=== PATIENT | female | born 1970 | race Caucasian/White ===

== ENCOUNTER → 2016-11-27 | Outpatient (CLI) | payer OTHER ==
--- NOTE | 2016-11-28 07:21 | USB ---
Reason for exam: clinical finding. History: Patient has history of endometrial cancer at age 25 and has history of other cancer at age 22. Family history of breast cancer in maternal aunt at age 55. Indicated problem(s): lump or thickening in the left breast. Physical Findings: Nurse Summary: Patient complains of left breast lump upper outer quadrant x 1 month (nurse mm). US Breast LT Left breast ultrasound including all four quadrants, the retroareolar region and axilla demonstrates a 1.1cm septated cyst at 1 o'clock, a 1.8 x 0.4 x 1.2cm oval, solid lesion with vascularity at 2 o'clock for which a biopsy is recommended, a 1.0cm oval, cystic lesion at 3 o'clock and a 0.5cm oval, solid, hypoechoic lesion at 4 o'clock. These results were verbally communicated with the patient and result sheet given to the patient on 11/27/09. ASSESSMENT: Incomplete: need additional imaging evaluation, BI-RAD 0 RECOMMENDATION: Special view mammogram of the left breast.
--- NOTE | 2016-11-28 07:28 | MM ---
Reason for exam: additional evaluation requested from abnormal screening. Last mammogram was performed 7 months ago. History: Patient has history of endometrial cancer at age 25 and has history of other cancer at age 22. Family history of breast cancer in maternal aunt at age 55. MG 3D Diag Mammo W/Cad LT CC and MLO view(s) were taken of the left breast. Prior study comparison: April 23, 2016, right breast MG 3d diag mammo w/cad RT. October 01, 2015, right breast MG 3d work up w/cad RT. September 17, 2015, bilateral MG screening mammo w CAD. The breast tissue is extremely dense which could obscure a lesion on mammography. These results were verbally communicated with the patient and result sheet given to the patient on 11/27/16. ASSESSMENT: Probably benign, BI-RAD 3 RECOMMENDATION: Surgical consultation of the left breast. Ultrasound core biopsy of both breasts. (ultrasound suspicious at 2 o'clock) Called with mammographic findings and has scheduled an appointment for the patient for 12/15/16 at 2:[address] Luna. Biopsy done 12/03/16 at 1 o'clock. PRELIMINARY REPORT CALLED AND FAXED TO DR. LUNA ON 11/28/16 AT 300/TMP.
== END | disposition home or self-care (01) ==
LOC: RADUSWWP 15:26
PROVIDERS: ATTEND Family Medicine
DX: N63 Unspecified lump in breast (principal); R92.8 Other abnormal and inconclusive findings on diagnostic imaging of breast
CPT/HCPCS: 76641; G0206; G0279

== ENCOUNTER → 2016-12-03 | Day surgery (SDC) | payer OTHER ==
[~2016-12-03] MED LIST: BACITRACIN OINT 1 EACH PACKET TOPICAL ONE; LIDOCAINE 1% INJ 10MG/ML (20 ML MDV) ONE; LIDOCAINE 1%-EPI 1:100,000 20 ML VIAL ONE; SODIUM BICARB 4% 5 ML VIAL (0.48 MEQ/ML) ONE
--- NOTE | 2016-12-03 14:12 | USB ---
EXAMINATION TYPE: US biopsy breast VAD LT, MG diagnostic mammo LT wo CAD DATE OF EXAM: 12/03/2016 1:38 PM CLINICAL HISTORY: R92.8 Abnormal mammo. Abnormal ultrasound. Palpable abnormality. TECHNIQUE: Ultrasound guided core biopsy of left breast with clip placement and follow-up two-view mammogram. COMPARISON: Left breast mammogram and ultrasound November 27, 2016 and older mammograms. FINDINGS: The procedure of ultrasound guided core biopsy was explained to the patient. Benefits, alternatives, and risks were discussed. An informed consent was then obtained. The patient was placed in supine positioning for imaging and for the procedure. Preprocedure imaging shows oval heterogeneous hypoechoic lesion at 2: 00 position measuring 7 mm on long axis zone B/C which believes correlates with the prior study as no additional suspicious lesions are seen near this level. Lesion is smaller versus prior exam. The overlying skin was prepped and draped in usual sterile fashion. Lidocaine buffered with bicarbonate was used as anesthetic into the skin and subcutaneous tissue. Lidocaine with epinephrine is used into the deeper tissue up to area of concern in the left breast. A luly was made with surgical scalpel. Under ultrasound guidance, a 13-gauge vacuum assisted biopsy gun device was used to obtain 4 core samples. Following this, a biopsy clip was left in lesion. The patient tolerated the procedure well without any immediate complication. The patient was kept in the radiology department for short stay after the procedure and then discharged home in stable condition. Postprocedure mammogram shows successful deployment of clip the posterior outer slightly upper aspect. No mammographic correlate noted. IMPRESSION: Successful, uncomplicated ultrasound guided core biopsy of area of concern in the left breast, full pathology results to follow. Low index of suspicion noted at time of procedure. Pathology Results: Benign BREAST, LEFT, CORE BIOPSY: FIBROCYSTIC CHANGES INCLUDING FIBROSIS, CYSTS, APOCRINE METAPLASIA, FOCAL FIBROADENOMATOID HYPERPLASIA AND COLUMNAR CELL HYPERPLASIA. Recommendation Follow up ultrasound of the left breast in 6 months. AMAURYD
== END ==
LOC: RADUSWWP 12:18
PROVIDERS: ATTEND Family Medicine
DX: R92.8 Other abnormal and inconclusive findings on diagnostic imaging of breast (principal); N60.32 Fibrosclerosis of left breast; N60.82 Other benign mammary dysplasias of left breast; N62 Hypertrophy of breast; N64.89 Other specified disorders of breast
CPT/HCPCS: 88305; 19083; G0206; A4648; J2001

== ENCOUNTER → 2017-07-24 | Outpatient (CLI) | payer OTHER ==
--- NOTE | 2017-07-27 09:21 | USB ---
Reason for exam: clinical finding. History: Patient has history of endometrial cancer at age 25 and has history of other cancer at age 22. Family history of breast cancer in maternal aunt at age 55 and breast cancer in aunt at age 50. Benign US biopsy breast VAD LT of the left breast, December 03, 2016. Indicated problem(s): palpable abnormality in the left breast. Physical Findings: Nurse Summary: 0.5cm nodule movable (nurse dw). US Breast LT Left breast ultrasound includes all four quadrants, the retroareolar region and axilla. Finding demonstrates a 0.5 x 0.5 x 0.4cm cystic lesion at 1 o'clock, smaller from prior, a 1.0 x 1.0 x 0.4cm solid, hypoechoic lesion at 2 o'clock, previously biopsied, a 0.6 x 0.6 x 0.3cm mixed lesion at 3 o'clock and a 0.5 x 0.5 x 0.4cm mixed lesion at 3 o'clock. Overall fibrocystic change. These results were verbally communicated with the patient and result sheet given to the patient on 07/24/17. ASSESSMENT: Benign, BI-RAD 2 RECOMMENDATION: Routine screening mammogram of both breasts. (due now)
== END | disposition home or self-care (01) ==
LOC: RADUSWWP 15:44
PROVIDERS: ATTEND Family Medicine
DX: R92.8 Other abnormal and inconclusive findings on diagnostic imaging of breast (principal)

== ENCOUNTER → 2018-01-07 | Outpatient (CLI) | payer OTHER ==
--- NOTE | 2018-01-08 08:18 | MM ---
Reason for exam: additional evaluation requested from prior study. Last mammogram was performed 1 year and 1 month ago. History: Patient has history of endometrial cancer at age 25 and has history of other cancer at age 22. Family history of breast cancer in maternal aunt at age 55 and breast cancer in aunt at age 50. Benign US biopsy breast VAD LT of the left breast, December 03, 2016. Physical Findings: Nurse did not find any significant physical abnormalities on exam. MG 3D Diag Mammo W/Cad NITIN Bilateral CC and MLO view(s) were taken. Prior study comparison: December 03, 2016, left breast MG diagnostic mammo LT wo CAD. November 27, 2016, left breast MG 3d diag mammo w/cad LT. The breast tissue is extremely dense which could obscure a lesion on mammography. There are stable right sided calcifications. No suspicious abnormality. These results were verbally communicated with the patient and result sheet given to the patient on 01/07/18. ASSESSMENT: Benign, BI-RAD 2 RECOMMENDATION: Routine screening mammogram of both breasts in 1 year.
== END | disposition home or self-care (01) ==
LOC: RADMAMWWP 15:30
PROVIDERS: ATTEND Family Medicine
DX: Z12.31 Encounter for screening mammogram for malignant neoplasm of breast (principal)
CPT/HCPCS: 77066; G0279

== ENCOUNTER → 2019-02-15 | Outpatient (CLI) | payer OTHER ==
--- NOTE | 2019-02-16 09:35 | MM ---
Reason for exam: additional evaluation requested from prior study. Last mammogram was performed 1 year and 1 month ago. History: Patient has history of endometrial cancer at age 25 and has history of other cancer at age 22. Family history of breast cancer in maternal aunt at age 55 and breast cancer in aunt at age 50. Benign US biopsy breast VAD LT of the left breast, December 03, 2016. Physical Findings: Nurse Summary: 0.5 x 0.5cm nodule in the left breast at 2 o'clock (nurse ts). MG Diagnostic Mammo w CAD NITIN Bilateral CC and MLO view(s) were taken. XCCL view(s) were taken of the left breast. Prior study comparison: January 07, 2018, bilateral MG 3d diag mammo w/cad NITIN. December 03, 2016, left breast MG diagnostic mammo LT wo CAD. The breast tissue is extremely dense which could obscure a lesion on mammography. Benign calcifications in the right breast. Left lateral asymmetry deep to the palpable improves on XCCL. Ultrasound will be performed. These results were verbally communicated with the patient and result sheet given to the patient on 02/15/19. ASSESSMENT: Incomplete: need additional imaging evaluation, BI-RAD 0 RECOMMENDATION: Ultrasound of the left breast. (palpable)
--- NOTE | 2019-02-16 09:38 | USB ---
Reason for exam: additional evaluation requested from abnormal screening. History: Patient has history of endometrial cancer at age 25 and has history of other cancer at age 22. Family history of breast cancer in maternal aunt at age 55 and breast cancer in aunt at age 50. Benign US biopsy breast VAD LT of the left breast, December 03, 2016. US Breast Limited LT Left limited breast ultrasound including focal area of concern, retroareolar and axilla demonstrates a 0.7 x 0.5 x 0.7cm oval, cystic, benign lesion at 2 o'clock, a 0.6 x 0.4 x 0.6cm oval, cystic, benign lesion at 2 o'clock, a 1.1 x 0.5 x 1.1cm oval, solid lesion at 2 o'clock prior biopsy of a solid mass in 2016, benign and a 1.2 x 0.7 x 1.1cm oval, cystic, benign lesion at 12 o'clock. These results were verbally communicated with the patient and result sheet given to the patient on 02/15/19. ASSESSMENT: Benign, BI-RAD 2 RECOMMENDATION: Routine screening mammogram of both breasts in 1 year.
== END | disposition home or self-care (01) ==
LOC: RADMAMWWP 15:21
PROVIDERS: ATTEND Family Medicine
DX: R92.8 Other abnormal and inconclusive findings on diagnostic imaging of breast (principal); R92.0 Mammographic microcalcification found on diagnostic imaging of breast
CPT/HCPCS: 77066

== ENCOUNTER → 2020-05-02 | Outpatient (CLI) | payer OTHER ==
--- NOTE | 2020-05-08 12:10 | MM ---
Reason for exam: screening (asymptomatic). Last mammogram was performed 1 year and 2 months ago. History: Patient has history of endometrial cancer at age 25 and has history of other cancer at age 22. Family history of breast cancer in maternal aunt at age 55 and breast cancer in aunt at age 50. Benign US biopsy breast VAD LT of the left breast, December 03, 2016. Physical Findings: A clinical breast exam by your physician is recommended on an annual basis and results should be correlated with mammographic findings. MG Screening Mammo w CAD Bilateral CC and MLO view(s) were taken. Prior study comparison: February 15, 2019, bilateral MG diagnostic mammo w CAD NITIN. January 07, 2018, bilateral MG 3d diag mammo w/cad NITIN. December 03, 2016, left breast MG diagnostic mammo LT wo CAD. April 23, 2016, right breast MG 3d diag mammo w/cad RT. September 17, 2015, bilateral MG screening mammo w CAD. The breast tissue is heterogeneously dense. This may lower the sensitivity of mammography. Inferior left MLO nodular asymmetry more defined. ASSESSMENT: Incomplete: need additional imaging evaluation, BI-RAD 0 RECOMMENDATION: Special view mammogram of the left breast. (3D) If lesion persists on supplemental views, image directed ultrasound is recommended. [facility] will attempt to contact patient to return for supplemental views and ultrasound if indicated.
== END | disposition home or self-care (01) ==
LOC: RADMAMWWP 12:24
PROVIDERS: ATTEND Family Medicine
DX: Z12.31 Encounter for screening mammogram for malignant neoplasm of breast (principal)
CPT/HCPCS: 77067

== ENCOUNTER → 2020-05-10 | Outpatient (CLI) | payer OTHER ==
--- NOTE | 2020-05-10 10:20 | MM ---
Reason for exam: additional evaluation requested from abnormal screening. Last mammogram was performed less than 1 month ago. History: Patient has history of endometrial cancer at age 25 and has history of other cancer at age 22. Family history of breast cancer in maternal aunt at age 55 and breast cancer in aunt at age 50. Benign US biopsy breast VAD LT of the left breast, December 03, 2016. Physical Findings: Nurse Summary: 1 x 1cm nodule in the left breast at 2 o'clock (nurse ts). MG Work Up Mamm w CAD LT Spot compression CC, spot compression MLO, and LM view(s) were taken of the left breast. Prior study comparison: May 02, 2020, bilateral MG screening mammo w CAD. February 15, 2019, bilateral MG diagnostic mammo w CAD NITIN. The breast tissue is extremely dense which could obscure a lesion on mammography. Finding #1: There is a 7 mm equal density (isodense), obscured mass in the lower outer quadrant of the left breast. Finding #2: There are typically benign calcifications in the left breast. These results were verbally communicated with the patient and result sheet given to the patient on 05/10/20. ASSESSMENT: Incomplete: need additional imaging evaluation, BI-RAD 0 RECOMMENDATION: Ultrasound of the left breast.
--- NOTE | 2020-05-10 10:23 | USB ---
Reason for exam: additional evaluation requested from abnormal screening. History: Patient has history of endometrial cancer at age 25 and has history of other cancer at age 22. Family history of breast cancer in maternal aunt at age 55 and breast cancer in aunt at age 50. Benign US biopsy breast VAD LT of the left breast, December 03, 2016. US Breast Workup Limited LT Left limited breast ultrasound including focal area of concern, retroareolar and axilla demonstrates a 1.1 x 1.0 x 0.7cm cystic lesion at 12 o'clock, a 1.2 x 1.0 x 0.8cm cystic lesion at 2 o'clock and a 0.6 x 0.7 x 0.3cm mixed lesion at 4 o'clock. Multiple cysts, measured palpable and mammographic correlation. These results were verbally communicated with the patient and result sheet given to the patient on 05/10/20. ASSESSMENT: Suspicious, BI-RAD 4 RECOMMENDATION: Ultrasound core biopsy of the left breast. Called Dr. Cano's office with mammographic findings and has scheduled an appointment for the patient for 05/17/20 at 2:[address] Cabral. PRELIMINARY REPORT CALLED AND FAXED TO DR. CABRAL ON 05/10/20.
== END | disposition home or self-care (01) ==
LOC: RADMAMWWP 06:56
PROVIDERS: ATTEND Family Medicine
DX: R92.8 Other abnormal and inconclusive findings on diagnostic imaging of breast (principal)
CPT/HCPCS: 77065

== ENCOUNTER → 2020-06-06 | Day surgery (SDC) | payer OTHER ==
[2020-06-06 09:50] VITALS: RESP 16; TEMP 98
[2020-06-06 11:25] VITALS: BP 120/74; PULSE 80
--- NOTE | 2020-06-06 11:40 | USB ---
EXAMINATION TYPE: US breast aspiration single LT, MG diagnostic mammo LT wo CAD DATE OF EXAM: 06/06/2020 COMPARISON: NONE CLINICAL HISTORY: R92.8 ABN MAMM. Informed consent was obtained and all the patient's questions were answered. The left 4:00 lesion was localized sonographically. Standard sterile technique was utilized as well as appropriate local anes thesia with 1% lidocaine. An 18-gauge needle was introduced into the lesion and aspirated. Scant amou nt of aspirate was obtained and sent for cytology. Clip marker was placed at the site of aspiration. Postprocedural mammogram demonstrates appropriate placement of clip marker. The patient tolerated the procedure well and left the department in stable condition. IMPRESSION: Successful ultrasound-guided cyst aspiration left 4:00 with cytology pending.
== END ==
LOC: RADUSWWP 09:29
PROVIDERS: ATTEND Surgery
DX: N60.02 Solitary cyst of left breast (principal)
CPT/HCPCS: 88108; 88305; 77065; 76942; 19000; A4648; J2001

== ENCOUNTER → 2020-12-11 | Outpatient (CLI) | payer OTHER ==
--- NOTE | 2020-12-11 11:14 | MM ---
Reason for exam: follow-up at short interval from prior study. Last mammogram was performed 6 months ago. History: Patient has history of endometrial cancer at age 25 and has history of other cancer at age 22. Family history of breast cancer in maternal aunt at age 55 and breast cancer in aunt at age 50. Benign US breast aspiration single LT of the left breast, June 06, 2020. Benign US biopsy breast VAD LT of the left breast, December 03, 2016. Physical Findings: Nurse did not find any significant physical abnormalities on exam. MG Diagnostic Mammo LT w CAD CC and MLO view(s) were taken of the left breast. Prior study comparison: June 06, 2020, left breast MG diagnostic mammo LT wo CAD. May 10, 2020, left breast MG work up mamm w CAD LT. The breast tissue is extremely dense which could obscure a lesion on mammography. Finding #1: There is a 13 mm circumscribed oval mass in the axilla position of the left breast. Finding #2: There are typically benign round calcifications in the left breast. Previous mammotome biopsy in the left breast. These results were verbally communicated with the patient and result sheet given to the patient on 12/11/20. ASSESSMENT: Incomplete: need additional imaging evaluation, BI-RAD 0 RECOMMENDATION: Ultrasound of the left breast. (axilla)
--- NOTE | 2020-12-11 11:18 | USB ---
Reason for exam: additional evaluation requested from abnormal screening. History: Patient has history of endometrial cancer at age 25 and has history of other cancer at age 22. Family history of breast cancer in maternal aunt at age 55 and breast cancer in aunt at age 50. Benign US breast aspiration single LT of the left breast, June 06, 2020. Benign US biopsy breast VAD LT of the left breast, December 03, 2016. US Breast Limited LT Technologist: Maria R Thakkar Left limited breast ultrasound including focal area of concern, retroareolar and axilla demonstrates a 0.8 x 0.8 x 0.6cm circular, cystic lesion 12 o'clock with echoes, suspect debris filled cyst, a 0.6 x 0.6 x 0.4cm round lesion at 1 o'clock, a 0.9 x 0.9 x 0.8cm circular, simple cystic lesion at 1 o'clock, a 1.1 x 1.1 x 0.5cm oval, cystic lesion at 1 o'clock with echoes, suspect debris filled cyst, a 1.3 x 0.7 x 0.5cm cystic cluster at 2 o'clock and a 1.3 x 1.1 x 0.9cm circular, simple cystic lesion at 3 o'clock. Multiple cystic lesions seen, largest measured. These results were verbally communicated with the patient and result sheet given to the patient on 12/11/20. ASSESSMENT: Benign, BI-RAD 2 RECOMMENDATION: Follow-up diagnostic mammogram of both breasts in 5 months. Back on schedule for April 2021.
== END | disposition home or self-care (01) ==
LOC: RADMAMWWP 08:48
PROVIDERS: ATTEND Surgery
DX: R92.8 Other abnormal and inconclusive findings on diagnostic imaging of breast (principal)
CPT/HCPCS: 77065

== ENCOUNTER → 2021-05-13 | Outpatient (CLI) | payer OTHER ==
--- NOTE | 2021-05-17 12:51 | MM ---
Reason for exam: additional evaluation requested from prior study. Last mammogram was performed 5 months ago. History: Patient has history of endometrial cancer at age 25 and has history of other cancer at age 22. Family history of breast cancer in maternal aunt at age 55 and breast cancer in aunt at age 50. Benign US breast aspiration single LT of the left breast, June 06, 2020. Benign US biopsy breast VAD LT of the left breast, December 03, 2016. Physical Findings: Nurse Summary: 0.5cm nodule in the left breast at 1 o'clock and 3 o'clock (nurse dw). MG Diagnostic Mammo w CAD NITIN Bilateral CC and MLO view(s) were taken. Prior study comparison: December 11, 2020, left breast MG diagnostic mammo LT w CAD. June 06, 2020, left breast MG diagnostic mammo LT wo CAD. The breast tissue is extremely dense which could obscure a lesion on mammography. Extensive nodularity left breast especially upper outer quadrant with 3 palpable markers placed by the nurse. Stable grouped calcifications right breast. These results were verbally communicated with the patient and result sheet given to the patient on 05/13/21. ASSESSMENT: Incomplete: need additional imaging evaluation, BI-RAD 0 RECOMMENDATION: Ultrasound of the left breast.
--- NOTE | 2021-05-17 12:53 | USB ---
Reason for exam: additional evaluation requested from abnormal screening. History: Patient has history of endometrial cancer at age 25 and has history of other cancer at age 22. Family history of breast cancer in maternal aunt at age 55 and breast cancer in aunt at age 50. Benign US breast aspiration single LT of the left breast, June 06, 2020. Benign US biopsy breast VAD LT of the left breast, December 03, 2016. US Breast LT Left complete breast ultrasound includes all four quadrants, the retroareolar region and axilla. Finding demonstrates a 15 x 9 x 12mm oval, cystic lesion at 1 o'clock BB, a 5 x 2 x 5mm oval, probable debris filled cyst at 2 o'clock, a 14 x 6 x 12mm cystic lesion at 2 o'clock BB and a 6 x 6 x 9mm cystic lesion at 4 o'clock BB. Innumerable cysts visualized. These results were verbally communicated with the patient and result sheet given to the patient on 05/13/21. ASSESSMENT: Probably benign, BI-RAD 3 RECOMMENDATION: Follow-up diagnostic mammogram of both breasts in 1 year.
== END | disposition home or self-care (01) ==
LOC: RADMAMWWP 14:30
PROVIDERS: ATTEND Family Medicine
DX: N63.25 Unspecified lump in the left breast, overlapping quadrants (principal); R92.1 Mammographic calcification found on diagnostic imaging of breast; N60.02 Solitary cyst of left breast; Z80.3 Family history of malignant neoplasm of breast; Z85.42 Personal history of malignant neoplasm of other parts of uterus
CPT/HCPCS: 77066

== ENCOUNTER → 2022-08-06 | Outpatient (CLI) | payer OTHER ==
--- NOTE | 2022-08-06 13:26 | MM ---
Reason for Exam: Additional evaluation requested from prior study. Last mammogram was performed 1 year(s) and 3 month(s) ago. Patient History: Menarche at age 14. First Full-Term at age 18. Premenopausal. Endometrial cancer, age 25. 06/06/2020, Benign Cyst Aspiration on the left side. 12/03/2016, Benign Core Biopsy on the left side. Maternal aunt had breast cancer, age 55. Maternal aunt had breast cancer, age 50. Risk Values: Aracelis 5 year model risk: 0.8%. NCI Lifetime model risk: 7.8%. Prior Study Comparison: 01/07/2018 Bilateral Diagnostic Mammogram, [facility]. 02/15/2019 Bilateral Diagnostic Mammogram, [facility]. 05/02/2020 Bilateral Screening Mammogram, [facility]. 05/10/2020 Left Diagnostic Mammogram, [facility]. 06/06/2020 Left Diagnostic Mammogram, [facility]. 12/11/2020 Left Diagnostic Mammogram, [facility]. 05/13/2021 Bilateral Diagnostic Mammogram, [facility]. Tissue Density: The breast tissue is extremely dense which could obscure a lesion on mammography. Findings: Analyzed By CAD. Extensive nodularity in the left breast especially in the upper outer quadrant with marginal increase to stable size 1.5 cm mass. Stable grouped calcifications within the right breast. Biopsy clip in the left breast. Overall Assessment: Incomplete: need additional imaging evaluation, BI-RAD 0 Management: Diagnostic Breast Ultrasound of the left breast. A clinical breast exam by your physician is recommended on an annual basis and results should be correlated with mammographic findings. This exam should not preclude additional follow-up of suspicious palpable abnormalities. Results were given to the patient verbally at the time of exam. Electronically signed and approved by: Florin Renee D.O.
--- NOTE | 2022-08-06 13:26 | MM ---
Reason for Exam: Additional evaluation requested from prior study. Last mammogram was performed 1 year(s) and 3 month(s) ago. Patient History: Menarche at age 14. First Full-Term at age 18. Premenopausal. Endometrial cancer, age 25. 06/06/2020, Benign Cyst Aspiration on the left side. 12/03/2016, Benign Core Biopsy on the left side. Maternal aunt had breast cancer, age 55. Maternal aunt had breast cancer, age 50. Risk Values: Aracelis 5 year model risk: 0.8%. NCI Lifetime model risk: 7.8%. Prior Study Comparison: 01/07/2018 Bilateral Diagnostic Mammogram, [facility]. 02/15/2019 Bilateral Diagnostic Mammogram, [facility]. 05/02/2020 Bilateral Screening Mammogram, [facility]. 05/10/2020 Left Diagnostic Mammogram, [facility]. 06/06/2020 Left Diagnostic Mammogram, [facility]. 12/11/2020 Left Diagnostic Mammogram, [facility]. 05/13/2021 Bilateral Diagnostic Mammogram, [facility]. Tissue Density: The breast tissue is extremely dense which could obscure a lesion on mammography. Findings: Analyzed By CAD. Extensive nodularity in the left breast especially in the upper outer quadrant with marginal increase to stable size 1.5 cm mass. Stable grouped calcifications within the right breast. Biopsy clip in the left breast. Overall Assessment: Incomplete: need additional imaging evaluation, BI-RAD 0 Management: Diagnostic Breast Ultrasound of the left breast. A clinical breast exam by your physician is recommended on an annual basis and results should be correlated with mammographic findings. This exam should not preclude additional follow-up of suspicious palpable abnormalities. Results were given to the patient verbally at the time of exam. Electronically signed and approved by: Florin Renee D.O.
--- NOTE | 2022-08-06 14:00 | USB ---
Reason for Exam: Follow-up at short interval from prior study. Patient History: Menarche at age 14. First Full-Term at age 18. Premenopausal. Endometrial cancer, age 25. 06/06/2020, Benign Cyst Aspiration on the left side. 12/03/2016, Benign Core Biopsy on the left side. Maternal aunt had breast cancer, age 55. Maternal aunt had breast cancer, age 50. Risk Values: Aracelis 5 year model risk: 0.8%. NCI Lifetime model risk: 7.8%. Prior Study Comparison: 06/06/2020 Left Diagnostic Mammogram, [facility]. 12/11/2020 Left Diagnostic Mammogram, [facility]. 05/13/2021 Bilateral Diagnostic Mammogram, [facility]. Findings: The upper outer quadrant of the left breast, the axilla of the left breast and the retroareolar of the left breast were scanned. Targeted left breast ultrasound from 12-3:00 with additional evaluation of the nipple and axilla was obtained. Mild increase in size of anechoic oval cystic lesion at 1:00 2 cm from the nipple measuring 1.4 x 1.2 x 1.4 cm, previously 1.5 x 0.9 x 1.2 cm. This demonstrates posterior acoustic enhancement. Stable thin septated oval anechoic cystic lesion at 1:00 4 centers from the nipple measuring 1.7 x 0.9 x 1.6 cm. Probable debris-filled cyst at 2:00 4 cm from the nipple measuring 0.4 x 0.9 x 0.9 cm, stable. Overall Assessment: Benign, BI-RAD 2 Management: Diagnostic Mammogram of both breasts in 6 months. A clinical breast exam by your physician is recommended on an annual basis and results should be correlated with mammographic findings. This exam should not preclude additional follow-up of suspicious palpable abnormalities. ??Results were given to the patient verbally at the time of exam. Electronically signed and approved by: Florin Renee D.O.
--- NOTE | 2022-08-06 14:00 | USB ---
Reason for Exam: Follow-up at short interval from prior study. Patient History: Menarche at age 14. First Full-Term at age 18. Premenopausal. Endometrial cancer, age 25. 06/06/2020, Benign Cyst Aspiration on the left side. 12/03/2016, Benign Core Biopsy on the left side. Maternal aunt had breast cancer, age 55. Maternal aunt had breast cancer, age 50. Risk Values: Aracelis 5 year model risk: 0.8%. NCI Lifetime model risk: 7.8%. Prior Study Comparison: 06/06/2020 Left Diagnostic Mammogram, [facility]. 12/11/2020 Left Diagnostic Mammogram, [facility]. 05/13/2021 Bilateral Diagnostic Mammogram, [facility]. Findings: The upper outer quadrant of the left breast, the axilla of the left breast and the retroareolar of the left breast were scanned. Targeted left breast ultrasound from 12-3:00 with additional evaluation of the nipple and axilla was obtained. Mild increase in size of anechoic oval cystic lesion at 1:00 2 cm from the nipple measuring 1.4 x 1.2 x 1.4 cm, previously 1.5 x 0.9 x 1.2 cm. This demonstrates posterior acoustic enhancement. Stable thin septated oval anechoic cystic lesion at 1:00 4 centers from the nipple measuring 1.7 x 0.9 x 1.6 cm. Probable debris-filled cyst at 2:00 4 cm from the nipple measuring 0.4 x 0.9 x 0.9 cm, stable. Overall Assessment: Benign, BI-RAD 2 Management: Diagnostic Mammogram of both breasts in 6 months. A clinical breast exam by your physician is recommended on an annual basis and results should be correlated with mammographic findings. This exam should not preclude additional follow-up of suspicious palpable abnormalities. ??Results were given to the patient verbally at the time of exam. Electronically signed and approved by: Florin Renee D.O.
== END | disposition home or self-care (01) ==
LOC: RADMAMWWP 12:27
PROVIDERS: ATTEND Family Medicine
DX: R92.8 Other abnormal and inconclusive findings on diagnostic imaging of breast (principal); Z80.3 Family history of malignant neoplasm of breast
CPT/HCPCS: 77066

== ENCOUNTER → 2023-03-12 | Outpatient (CLI) | payer OTHER ==
--- NOTE | 2023-03-12 15:03 | MM ---
Reason for Exam: Follow-up at short interval from prior study. Last screening mammogram was performed 7 month(s) ago. Patient History: Menarche at age 14. First Full-Term at age 18. Premenopausal. Endometrial cancer, age 25. 06/06/2020, Benign Cyst Aspiration on the left side. 12/03/2016, Benign Core Biopsy on the left side. Maternal aunt had breast cancer, age 55. Maternal aunt had breast cancer, age 50. Last menstrual period: 03/06/2023 Risk Values: Aracelis 5 year model risk: 0.8%. NCI Lifetime model risk: 7.7%. Prior Study Comparison: 11/27/2016 Left Diagnostic Mammogram, [facility]. 12/03/2016 Left Diagnostic Mammogram, [facility]. 07/24/2017 Left Diagnostic Ultrasound, [facility]. 01/07/2018 Bilateral Diagnostic Mammogram, [facility]. 02/15/2019 Bilateral Diagnostic Mammogram, [facility]. 02/15/2019 Left Diagnostic Ultrasound, [facility]. 05/02/2020 Bilateral Screening Mammogram, [facility]. 05/10/2020 Left Diagnostic Mammogram, [facility]. 05/10/2020 Left Diagnostic Ultrasound, [facility]. 06/06/2020 Left Diagnostic Mammogram, [facility]. 12/11/2020 Left Diagnostic Mammogram, [facility]. 12/11/2020 Left Diagnostic Ultrasound, [facility]. 05/13/2021 Bilateral Diagnostic Mammogram, [facility]. 05/13/2021 Left Diagnostic Ultrasound, [facility]. 08/06/2022 Left US breast limited LT, [facility]. 08/06/2022 Bilateral MG diagnostic mammo w CAD NITIN, [facility]. Tissue Density: The breast tissue is extremely dense which could obscure a lesion on mammography. Findings: Analyzed By CAD. Chronic bilateral breast nodularity, particularly along the upper outer quadrant of the left breast. Unchanged heterogeneous tiny grouped microcalcifications central posterior right breast. Microclip medial left breast from prior biopsy. No significant change from prior exams. Overall Assessment: Benign, BI-RAD 2 Management: Diagnostic Mammogram of both breasts in 1 year. Given the patient's extremely dense breast tissue and extensive nodularity, consider supplementary screening with breast ultrasound. Results were given to the patient verbally at the time of exam. Patient should continue monthly self-breast exams. A clinical breast exam by your physician is recommended on an annual basis. This exam should not preclude additional follow-up of suspicious palpable abnormalities. Note on Aracelis scores and lifetime risk: 1. A Aracelis score greater than 3% is considered moderate risk. If this is the case, consider specialist referral to assess eligibility for a risk reducing agent. 2. If overall lifetime risk for the development of breast cancer is 20% or higher, the patient may qualify for future screening with alternating mammogram and breast MRI. Electronically signed and approved by: Kristian Red M.D. Radiologist
== END | disposition home or self-care (01) ==
LOC: RADMAMWWP 14:24
PROVIDERS: ATTEND Family Medicine
DX: N63.21 Unspecified lump in the left breast, upper outer quadrant (principal); N63.10 Unspecified lump in the right breast, unspecified quadrant; Z80.3 Family history of malignant neoplasm of breast
CPT/HCPCS: 77062; 77066

== ENCOUNTER → 2024-01-11 | Day surgery (SDC) | payer OTHER ==
[2024-01-06 13:24] VITALS: BMI 18.6
[2024-01-11] MEDS: SODIUM CHLORIDE 0.9% 1,000 ML IV SCH (09:33)
[2024-01-11 09:42] VITALS: BP 145/88; PULSE 106; RESP 14; TEMP 97.7
--- NOTE | 2024-01-11 16:42 | P.EPPROC ---
- EP Procedure Note Electrophysiology Procedure Note: Diagnosis Recurrent syncope Twelve-lead EKG shows sinus rhythm with normal LA narrow QRS and sinus arrhythmia Normal ST segments normal QT interval Tilt table test per protocol Baseline heart rate 66 beats minute Baseline blood pressure 111/67 mmHg There was an immediate increase in heart rate upon upright position no symptoms noted Heart rate remained elevated until she was laid supine, her heart rate came down to 73 beats a minute Patient remained asymptomatic Impression Normal twelve-lead EKG Orthostatic intolerance without secondary neurocardiogenic phenomena
== END ==
LOC: CATHEP 09:08
PROVIDERS: ATTEND Internal Medicine Clinical Cardiac Electrophysiology
DX: R55 Syncope and collapse (principal); E78.2 Mixed hyperlipidemia; E03.9 Hypothyroidism, unspecified; F12.90 Cannabis use, unspecified, uncomplicated
CPT/HCPCS: 93660

== ENCOUNTER → 2024-03-30 | Outpatient (CLI) | payer OTHER ==
--- NOTE | 2024-04-04 15:52 | MM ---
Reason for Exam: Screening (asymptomatic). Last mammogram was performed 1 year(s) and 1 month(s) ago. Patient History: Menarche at age 14. First Full-Term at age 18. Premenopausal. Endometrial cancer, age 25. 06/06/2020, Benign Cyst Aspiration on the left side. 12/03/2016, Benign Core Biopsy on the left side. Maternal aunt had breast cancer, age 55. Maternal aunt had breast cancer, age 50. Risk Values: Aracelis 5 year model risk: 0.9%. NCI Lifetime model risk: 7.5%. Prior Study Comparison: 05/13/2021 Bilateral Diagnostic Mammogram, [facility]. 08/06/2022 Bilateral MG diagnostic mammo w CAD NITIN, [facility]. 03/12/2023 Bilateral MG 3D diag mammo w/cad NITIN, [facility]. Tissue Density: The breasts are extremely dense, which lowers the sensitivity of mammography. Findings: Analyzed By CAD. The pattern is symmetrical. Core marker within the left breast. Scattered punctate calcifications are within the posterior right breast few scattered calcifications are within the left breast. No suspicious groups of microcalcifications, spiculated or lobular masses, architectural distortion or other secondary signs of malignancy are mammographically apparent. Overall Assessment: Benign, BI-RAD 2 Management: Screening Mammogram of both breasts in 1 year. A negative mammogram report should not preclude additional follow up of suspicious palpable abnormalities. Patient should continue monthly self breast exam. A clinical breast exam by your physician is recommended on an annual basis and results should be correlated with mammographic findings. Note on Aracelis scores and lifetime risk: 1. A Aracelis score greater than 3% is considered moderate risk. If this is the case, consider specialist referral to assess eligibility for a risk reducing agent. 2. If overall lifetime risk for the development of breast cancer is 20% or higher, the patient may qualify for future screening with alternating mammogram and breast MRI. Electronically signed and approved by: Kleber Melara D.O. Radiologis
== END | disposition home or self-care (01) ==
LOC: RADMAMWWP 15:05
PROVIDERS: ATTEND Family Medicine
DX: Z12.31 Encounter for screening mammogram for malignant neoplasm of breast (principal); Z80.3 Family history of malignant neoplasm of breast
CPT/HCPCS: 77067